=== PATIENT | female | born 1965 | race African-American/Black ===

== ENCOUNTER 2018-01-18 14:06 | Outpatient (CLI) | payer OTHER ==
--- NOTE | 2018-01-18 16:34 | RAD ---
TWO VIEWS RIGHT HIP: Comparison: None. History: Right hip pain for a few weeks. FINDINGS: Two views of the right hip shows moderate joint space narrowing and osteophyte formation in the right hip joint. No fracture or dislocation are seen. IMPRESSION: Moderate right hip osteoarthritis. POS: [facility]
--- NOTE | 2018-01-18 16:35 | RAD ---
FOUR VIEWS OF THE RIGHT KNEE: Comparison: None. History: Right knee pain for a few weeks. FINDINGS: Four views of the right knee shows no evidence of acute fracture or dislocation. No knee effusion is seen. No degenerative changes are present. IMPRESSION: Unremarkable exam. POS: [facility]
== END 2018-01-18 14:07 | disposition home or self-care (01) ==
LOC: BICRAD 14:06
PROVIDERS: ATTEND Family Medicine
DX: M25.551 Pain in right hip (principal); M25.561 Pain in right knee; M16.11 Unilateral primary osteoarthritis, right hip